=== PATIENT | female | born 1985 | race Two or more races ===

== ENCOUNTER → 2025-01-04 | Outpatient (REF) | payer BC, OTHER | LOC: M PLALAB 09:55 | PROVIDERS: ATTEND Advanced Practice Midwife | DX: Z53.9 Procedure and treatment not carried out, unspecified reason (principal) ==

== ENCOUNTER → 2025-01-11 | Outpatient (CLI) | payer BC, OTHER ==
[2025-01-11 11:10] LABS: PLATELET COUNT, AUTOMATED 273 10^3/uL (150-450)
[2025-01-11 12:17] LABS: HIV 1&2 SCREEN NEGATIVE (NEGATIVE)
[2025-01-11 12:25] LABS: HEPATITIS C VIRUS ABY INDEX < 0.02 INDEX (<0.8)
[2025-01-11 13:13] LABS: Trichomonas vaginalis (AMP) NOT DETECTED (NEGATIVE)
[2025-01-11 13:37] LABS: GC DNA AMPLIFICATION NEGATIVE (NEGATIVE)
== END ==
LOC: M PLALAB 08:44
PROVIDERS: ATTEND Advanced Practice Midwife
DX: Z34.80 Encounter for supervision of other normal pregnancy, unspecified trimester (principal)

== ENCOUNTER → 2025-02-01 | Outpatient (CLI) | payer BC, OTHER | LOC: M WHC 11:35 | PROVIDERS: ATTEND Specialist | DX: Z53.9 Procedure and treatment not carried out, unspecified reason (principal) ==

== ENCOUNTER 2025-02-24 15:12 | Emergency (ER) | payer BC, OTHER ==
[~2025-02-24] VITALS: Ht 160 cm; Wt 84.4 kg
[2025-02-24] MEDS ORDERED: PRENTAB7 (15:20)
[2025-02-24 16:03] LABS: BASO # 0.1 10^3/uL (0.0-0.2); BASO % 0.3 % (0.0-1.0); EOS # 0.1 10^3/uL (0.0-0.5); EOS % 0.3 % (0.0-3.0); LYMPH # 1.5 10^3/uL (1.5-5.0); LYMPH % 8.2 % (24.0-44.0); MONO # 0.9 10^3/uL (0.0-0.8); MONO % 4.9 % (2.0-8.0); NEUTROPHILS # 15.5 10^3/uL (1.5-8.5); NEUTROPHILS % 85.4 % (36.0-66.0); PLATELET COUNT, AUTOMATED 262 10^3/uL (150-450)
[2025-02-24 16:32] LABS: ALT/SGPT 19 U/L (7.0-40); AST/SGOT 20 U/L (<34); CALCIUM LEVEL 9.5 MG/DL (8.5-10.1); CARBON DIOXIDE LEVEL 26 MMOL/L (20-31); CHLORIDE LEVEL 101 MMOL/L (98-107); CREATININE FOR GFR 0.54 MG/DL (0.55-1.30); GLOMERULAR FILTRATION RATE > 90.0 (>60); POTASSIUM SERUM 4.0 MMOL/L (3.5-5.1); SODIUM LEVEL 137 MMOL/L (136-145)
[2025-02-24 17:18] LABS: KETONE, URINE AUTO RFX NEGATIVE (NEGATIVE); LEUKOCYTE ESTERASE UR AUTO RFX TRACE (NEGATIVE); MUCUS, URINE RFX SMALL (NEGATIVE); NITRITE, URINE AUTO RFX NEGATIVE (NEGATIVE); RBC, URINE AUTO RFX 32 /HPF (0-3); SQUAM EPITHELIAL CELL UR AURFX 10 /HPF (0-6); WBC, URINE AUTO RFX 13 /HPF (0-3)
[2025-02-24] MEDS: cefTRIAXone SOD 1 GM in DEXTROSE 5% (D5W) ADV/MINI-BAG 50 ML IV ONE (18:45)
[2025-02-24] MEDS ORDERED: CEFD300C PO (18:55)
[2025-02-24] MEDS ORDERED: NITR100C3 PO (19:05)
[2025-02-24 20:01] VITALS: BP 117/64; TEMP 98.1; O2SAT 97
== END 2025-02-24 20:24 | disposition home or self-care (01) ==
LOC: M ED 16:41
DX: O23.32 Infections of other parts of urinary tract in pregnancy, second trimester (principal); O26.892 Other specified pregnancy related conditions, second trimester; Z3A.17 17 weeks gestation of pregnancy; Z88.0 Allergy status to penicillin; Z79.1 Long term (current) use of non-steroidal anti-inflammatories (NSAID); Z79.899 Other long term (current) drug therapy; Z79.810 Long term (current) use of selective estrogen receptor modulators (SERMs)
CPT/HCPCS: 76815; 76857; 80048; 80076; 81001; 83690; 85025; 87086; 96365; 96366; 99283; J0696

== ENCOUNTER 2025-02-25 13:33 | Observation (INO) | payer BC, OTHER ==
[2025-02-24] MEDS: LR 1,000 ML IV SCH (23:50)
[~2025-02-25] VITALS: Ht 160 cm; Wt 85.1 kg
[2025-02-25] MEDS: ACETAMINOPHEN 500 MG TAB PO ONE (00:45)
[~2025-02-25 13:33] MED LIST: CEFD300C PO; NITR100C3 PO; PRENTAB7
[2025-02-25 14:37] LABS: BASO # 0.1 10^3/uL (0.0-0.2); BASO % 0.2 % (0.0-1.0); EOS # 0.0 10^3/uL (0.0-0.5); EOS % 0.0 % (0.0-3.0); LYMPH # 0.6 10^3/uL (1.5-5.0); LYMPH % 3.0 % (24.0-44.0); MONO # 0.5 10^3/uL (0.0-0.8); MONO % 2.5 % (2.0-8.0); NEUTROPHILS # 19.8 10^3/uL (1.5-8.5); NEUTROPHILS % 93.4 % (36.0-66.0); PLATELET COUNT, AUTOMATED 289 10^3/uL (150-450)
[2025-02-25 15:04] LABS: ALT/SGPT 20 U/L (7.0-40); AST/SGOT 19 U/L (<34); CALCIUM LEVEL 9.0 MG/DL (8.5-10.1); CARBON DIOXIDE LEVEL 26 MMOL/L (20-31); CHLORIDE LEVEL 97 MMOL/L (98-107); CREATININE FOR GFR 0.59 MG/DL (0.55-1.30); GLOMERULAR FILTRATION RATE > 90.0 (>60); POTASSIUM SERUM 4.0 MMOL/L (3.5-5.1); SODIUM LEVEL 132 MMOL/L (136-145)
[2025-02-25] MEDS: NS (Normal Saline) 0.9% 1,000 ML IV ONE (15:17)
[2025-02-25] MEDS: ACETAMINOPHEN *IV* 1,000 MG in IV 1 EA IV ONE ×2 (16:00→22:24)
[2025-02-25 17:45] LABS: KETONE, URINE AUTO RFX 1+ mg/dL (NEGATIVE); LEUKOCYTE ESTERASE UR AUTO RFX NEGATIVE (NEGATIVE); NITRITE, URINE AUTO RFX NEGATIVE (NEGATIVE); RBC, URINE AUTO RFX 1 /HPF (0-3); SQUAM EPITHELIAL CELL UR AURFX 0 /HPF (0-6); WBC, URINE AUTO RFX 2 /HPF (0-3)
[2025-02-25] MEDS: cefTRIAXone SOD 1 GM in DEXTROSE 5% (D5W) ADV/MINI-BAG 50 ML IV ONE (18:07)
[2025-02-25] MEDS: ONDANSETRON 4MG/2ML VIAL IV ONE (19:34)
[2025-02-26] VITALS: BP 135/69; TEMP 98.6; O2SAT 97
[2025-02-26 04:00] VITALS: BP 134/75; TEMP 97.9; O2SAT 99
[2025-02-26] MEDS ORDERED: PERCOCET 5MG/325MG TAB PO PRN (04:10)
[2025-02-26] MEDS: ACETAMINOPHEN 500 MG TAB PO PRN (04:41)
[2025-02-26 10:00] VITALS: BP 123/70; TEMP 98.7; O2SAT 97
[2025-02-26 11:21] LABS: PLATELET COUNT, AUTOMATED 283 10^3/uL (150-450)
[2025-02-26 12:00] LABS: ALT/SGPT 16 U/L (7.0-40); AST/SGOT 16 U/L (<34); CALCIUM LEVEL 8.9 MG/DL (8.5-10.1); CARBON DIOXIDE LEVEL 26 MMOL/L (20-31); CHLORIDE LEVEL 104 MMOL/L (98-107); CREATININE FOR GFR 0.62 MG/DL (0.55-1.30); GLOMERULAR FILTRATION RATE > 90.0 (>60); POTASSIUM SERUM 3.7 MMOL/L (3.5-5.1); SODIUM LEVEL 138 MMOL/L (136-145)
[2025-02-26] MEDS ORDERED: ACET-683 PO (17:35)
== END 2025-02-26 18:03 | disposition home or self-care (01) ==
LOC: M ED 13:33 → M ED INP 13:34 → M OBS 23:50
PROVIDERS: ADMIT Specialist; ATTEND Specialist
DX: O26.892 Other specified pregnancy related conditions, second trimester (principal); R10.31 Right lower quadrant pain; Z3A.17 17 weeks gestation of pregnancy; Z79.899 Other long term (current) drug therapy; Z88.0 Allergy status to penicillin
CPT/HCPCS: 72195; 80048; 80053; 80076; 81001; 83605; 83690; 85025; 85027; 96365; 96366; 96367; 99285; J0134; J0696